=== PATIENT | male | born 1965 | race African-American/Black ===

== ENCOUNTER 2017-10-20 17:24 | Emergency (ER) | payer MEDICAID ==
[~2017-10-20] VITALS: Ht 177.8 cm; Wt 86.2 kg
[~2017-10-20 17:24] MED LIST: ARIP15TA3
--- NOTE | 2017-10-20 17:30 | NUR ---
BIB [facility], WAS FOUND ON STREET WITH ETOH NOTED ON BREATH, NAD NOTED, VSS, RESP EVEN AND UNLABORED, PT PUT ON MONITOR, WAITING FOR MD ALBARRAN.
--- NOTE | 2017-10-20 18:47 | NUR ---
Patient is resting comfortably in bed with eyes closed. Easily aroused. VSS
--- NOTE | 2017-10-20 23:37 | NUR ---
PT REPORT RECIVED FROM DOMINGO ROME, PT IN BED ON MONITOR WILL CONTINUE TO MONITOR.
--- NOTE | 2017-10-20 23:59 | NUR ---
Patient discharged to home in stable condition. Written and verbal after care instructions given. Patient verbalizes understanding of instruction. PT WALKED OUT OF THE ER WITH A STEADY GAIT AND STATES HE WILL GET AN UBER HOME AND WILL NOT DRIVE
[2017-10-21 00:02] VITALS: BP 105/67
== END 2017-10-21 00:03 | disposition home or self-care (01) ==
LOC: ER 17:25
DX: F10.129 Alcohol abuse with intoxication, unspecified (principal); F20.9 Schizophrenia, unspecified; F17.200 Nicotine dependence, unspecified, uncomplicated; Z88.0 Allergy status to penicillin
CPT/HCPCS: 36415; 70450; 82962; 99285; A4606; G0480; Z7610